=== PATIENT | male | born 1960 | race Native Hawaiian/Other Pacific Islander ===

== ENCOUNTER 2020-07-21 14:49 | Outpatient (CLI) | payer OTHER ==
[2020-07-21 15:15] LABS: POTASSIUM 4.6 mmol/L (3.6-5.2)
== END 2020-07-21 20:56 | disposition home or self-care (01) ==
LOC: LABW 14:49
PROVIDERS: ATTEND Nurse Practitioner Adult Health
DX: I10 Essential (primary) hypertension (principal); I42.9 Cardiomyopathy, unspecified
CPT/HCPCS: 36415; 80048

== ENCOUNTER 2020-11-28 12:16 | Outpatient (CLI) | payer OTHER ==
[2020-11-28 12:35] LABS: POTASSIUM 4.2 mmol/L (3.6-5.2)
== END 2020-11-28 20:07 | disposition home or self-care (01) ==
LOC: LABW 12:16
PROVIDERS: ATTEND Specialist
DX: I10 Essential (primary) hypertension (principal); I42.8 Other cardiomyopathies; E11.9 Type 2 diabetes mellitus without complications; R60.0 Localized edema
CPT/HCPCS: 36415; 80048